=== PATIENT | male | born 1995 | race Caucasian/White ===

== ENCOUNTER 2024-02-18 10:12 | Emergency (ER) | payer MEDICAID, SELFPAY ==
--- NOTE | 2024-02-18 10:15 | DI.RAD_ITS ---
Exam(s) XR SHOULDER LT COMPLETE 2+V XR CLAVICLE LT EXAM: XR SHOULDER LT COMPLETE 2+V CLINICAL HISTORY: LEFT SHOULDER PAIN. TECHNIQUE: 2D digital imaging was performed. Five views of the shoulder. Two views of the clavicle COMPARISON: CR XR CLAVICLE LT from 02/18/2024 FINDINGS: BONES: No acute fracture is present. No bony destructive lesion is seen. JOINTS: No dislocation present. The AC joint is not widened. SOFT TISSUE: Normal. IMPRESSION: Unremarkable radiographs of the left shoulder and clavicle. DATA REPOSITORY: RADIATION DOSE DELIVERED:
[2024-02-18 10:20] VITALS: BP 164/57; PULSE 72; RESP 16; TEMP 36.8; O2SAT 98
--- NOTE | 2024-02-18 13:02 | W.ED.GENAD ---
Discharge Plan Disposition Patient Disposition: Home Condition: Stable Discharge Details Clinical Impression: Unspecified injury of muscle(s) and tendon(s) of the rotator cuff of left shoulder, initial encounter, Acute pain of left shoulder, Elevated blood pressure reading Primary Care Provider: Jennifer Fontenot ED Provider: Christian Pimentel Home Meds and New Rx's Prescriptions: Continued cetirizine [Zyrtec] 10 mg tablet 10 mg PO DAILY PRN Discharge Instructions Instructions: Rotator cuff injury, High blood pressure in adults Additional Instructions: Please use sling over the next 2 weeks. Remove arm from the sling twice a day to perform pendulum exercises as reviewed. Please take ibuprofen over the counter. Take 600mg by mouth every 6 hours as needed for pain. Please take acetaminophen (tylenol) - 650mg every 6 hours by mouth as needed for pain. If pain does not improve over the next 1 week, please follow-up with orthopedics. Your blood pressure was elevated today at 164/57. Please be sure to discuss this with your doctor and have this rechecked. Please contact your primary care physician to arrange follow-up. Return to the ER immediately for any worsening or new concerning symptoms. Referrals: [facility] [Provider Group] Jennifer Fontenot NP [Primary Care Provider] - [facility] General Mode of arrival: ambulatory. Date/Time Provider Initiated Documentation: 02/18/24 10:27. Limitations to Documentation: no limitations. Information obtained by: patient. HPI Narrative: 28-year-old male presents with chief complaint of left shoulder pain. Patient notes he fell with his left arm extended while propped against a bale of hay. He felt a popping sensation during the fall. He immediately had severe pain that has persisted. He notes pain is worse with movements of the shoulder. No other injury sustained. Related Data Home Medications ?Medication ?Instructions ?Recorded ?Confirmed cetirizine 10 mg tablet (Zyrtec) 10 mg PO DAILY PRN 04/19/22 02/18/24 Allergies Allergy/AdvReac Type Severity Reaction Status Date / Time blue dye Allergy Intermediate Headache Verified 02/18/24 10:46 red dye Allergy Intermediate HEADACHE Verified 02/18/24 10:46 General Stated Complaint: Orthopedic ALISON: 4 Review of Systems Musculoskeletal Musculoskeletal: Reports as per HPI Exam Cardio Rate: regular rate Rhythm: regular rhythm Extrem Left upper extremity: shoulder/upper arm Details: tenderness Location: of the proximal humerus (posterior shoulder); not of the clavicle, not of the A-C joint, not of the scapula, not of the mid-shaft humerus, not over the coracoid process and not over the biceps tendon, axillary nerve sensory function normal and abnormal ROM Details: pain with active ROM Details: in ABduction and in internal rotation, elbow/forearm Details: normal to inspection, wrist Details: normal to inspection and radial pulse present and hand Details: normal to inspection Course Vital Signs Vital signs: Vital Signs Temperature 36.8 C 02/18/24 10:20 Pulse 72 02/18/24 10:20 Respiratory Rate 16 02/18/24 10:20 Blood Pressure 164/57 H 02/18/24 10:20 Pulse Oximetry 98 02/18/24 10:20 Temperature 36.8 C 02/18/24 10:20 Pulse 72 02/18/24 10:20 Respiratory Rate 16 02/18/24 10:20 Blood Pressure 164/57 H 02/18/24 10:20 Pulse Oximetry 98 02/18/24 10:20 Pain Level 3 02/18/24 10:20 Medical Decision Making 28-year-old male here with fall with left arm outstretched with pain in his posterior shoulder that is worse with range of motion. Patient is neuro vascularly intact. Considered fracture. X-ray of the left shoulder and clavicle interpreted by radiology: No fracture or dislocation. Suspect rotator cuff injury. Plan for sling and will have him follow-up with orthopedics should pain not improve with conservative management. Quality:SDOH Health Related Social Needs: No Data to Display PFSH All Active Problems Elevated blood pressure reading (Acute) Acute pain of left shoulder (Acute) Unspecified injury of muscle(s) and tendon(s) of the rotator cuff of left shoulder, initial encounter (Acute) Social History Smoking/Tobacco Use Status: Former Tobacco Use Quit Date: 02/20/14 Tobacco: How many years used: 1 Smoking risk assessment performed?: Yes Alcohol Intake: current Alcohol Intake frequency: a few times a week Alcohol type: beer Counseling given: No Drug use: Never Substance use type: does not use Counseling given: Yes Adopted: No Caregiver/Support person: No Foster care: No Household members: spouse and children Housing: house Number of Children: 2 Communication Needs: None Education Level: high school current occupation: [employer] Pets and animals: Yes Pets and animals: cat(s) and dog(s) Sexually active: Yes Do you think of yourself as: straight/heterosexual Current gender identity: male What is your relationship status?: How often do you talk on the phone with friends or family?: three or more times per week How often do you get together with friends or relatives?: once per week Do you belong to any clubs or organized social groups?: no Panel score (0-1 are the most socially isolated patients): 2 What type of physical activity do you participate in: other Details: 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
[2024-02-18 13:28] VITALS: BP 129/65; PULSE 67; RESP 16; O2SAT 98
== END 2024-02-18 13:29 | disposition home or self-care (01) ==
PROVIDERS: Emergency Provider Student in an Organized Health Care Education/Training Program; PCP Nurse Practitioner
DX: S46.092A Other injury of muscle(s) and tendon(s) of the rotator cuff of left shoulder, initial encounter (principal); R03.0 Elevated blood-pressure reading, without diagnosis of hypertension; W17.89XA Other fall from one level to another, initial encounter; Y93.89 Activity, other specified; Y92.73 Farm field as the place of occurrence of the external cause; Z87.891 Personal history of nicotine dependence
CPT/HCPCS: 99283; 73000; 73030

== ENCOUNTER 2024-04-10 01:50 | Outpatient (CLI) | payer MEDICAID, SELFPAY ==
--- NOTE | 2024-04-10 07:00 | DI.MRI_ITS ---
Exam(s) MR UPPER JOINT LT WO EXAM: MR UPPER JOINT LT WO CLINICAL HISTORY: PAIN, INJURY,lt rotator cuff tear,M75.102. TECHNIQUE: Multiplanar multisequence MRI was performed. COMPARISON: CR XR SHOULDER LT COMPLETE 2+V from 02/18/2024 FINDINGS: BONES: There is no fracture or contusion pattern. JOINTS: There is mild hyperintense signal seen at the acromioclavicular joint with subchondral cysts. This may represent early degenerative change. No evidence of a fracture. The glenohumeral joint i s normal. TENDONS: Supraspinatus: No evidence of a supraspinatus tendon tear. The tendon is otherwise unremarkable. Infraspinatus: There is a tiny focus of hyperintense signal seen in insertion site of the infraspinat us tendon (series 8001, image 5). There is otherwise normal signal. Subscapularis: Unremarkable. Teres Minor: Unremarkable. Biceps and Sledge: Unremarkable. MUSCLES: Unremarkable. GLENOID LABRUM: There is blunting of the posterior aspect of the labrum which may represent degenerat ion or tear. SOFT TISSUES: Unremarkable. LIGAMENTS: Unremarkable. OTHER: There is a small amount of fluid in the subacromial subdeltoid bursa. IMPRESSION: 1. Small focus of hyperintense signal seen in the infraspinatus tendon. This may represent a tendino sis or small tear. No evidence of a full-thickness rotator cuff tear. 2. Blunting of the posterior aspect of the labrum. 3. Hyperintense marrow signal at the acromioclavicular joint without evidence of a fracture. DATA REPOSITORY:
== END 2024-04-10 02:10 ==
LOC: DI 01:50
PROVIDERS: PCP Nurse Practitioner; Visit Provider Student in an Organized Health Care Education/Training Program
DX: M75.102 Unspecified rotator cuff tear or rupture of left shoulder, not specified as traumatic (principal)
CPT/HCPCS: 73221